=== PATIENT | female | born 1970 | race Caucasian/White ===

== ENCOUNTER 2017-07-23 13:54 | Emergency (ER) | payer OTHER ==
[~2017-07-23] VITALS: Ht 167.6 cm; Wt 63.5 kg
[2017-07-23 13:57] VITALS: BP 136/114
[2017-07-23] MEDS ORDERED: KETOROLAC TROMETHAMINE INJ 60 MG/2 ML VIAL IM ONE (14:30)
[2017-07-23] MEDS ORDERED: KETOROLAC TROMETHAMINE INJ 30 MG/ML VIAL ONE (15:03)
== END 2017-07-23 15:34 | disposition home or self-care (01) ==
LOC: ER 14:01
DX: S69.91XA Unspecified injury of right wrist, hand and finger(s), initial encounter (principal); M25.511 Pain in right shoulder; M62.838 Other muscle spasm; V49.49XA Driver injured in collision with other motor vehicles in traffic accident, initial encounter; Y93.89 Activity, other specified; Y92.410 Unspecified street and highway as the place of occurrence of the external cause; Y99.8 Other external cause status
CPT/HCPCS: 73030-TC; 73130-TC; 84703-TC; A4606; J1885; Z7610